=== PATIENT | male | born 1950 | race Caucasian/White ===

== ENCOUNTER 2016-08-21 09:33 | Day surgery (SDC) | payer MEDICARE ==
[2016-08-13 11:19] VITALS: BMI 25.0
[2016-08-21] MEDS ORDERED: Propofol 10 mg/ml Inj (20 ML) ONE (10:27)
[2016-08-21] MEDS ORDERED: Lidocaine 2% Inj (20ml) ONE (10:27)
[2016-08-21] MEDS ORDERED: Lactated Ringer's 1,000 ML IV SCH (11:30)
[2016-08-21 16:18] VITALS: BP 118/67; PULSE 66; RESP 16; TEMP 97.9; O2SAT 97
== END 2016-08-21 12:50 | disposition home or self-care (01) ==
LOC: ENDO 09:33
PROVIDERS: ATTEND Specialist
DX: Z12.11 Encounter for screening for malignant neoplasm of colon (principal); K57.30 Diverticulosis of large intestine without perforation or abscess without bleeding; K64.8 Other hemorrhoids; I10 Essential (primary) hypertension; E11.8 Type 2 diabetes mellitus with unspecified complications; E78.5 Hyperlipidemia, unspecified; Z79.84 Long term (current) use of oral hypoglycemic drugs
CPT/HCPCS: 45378; 82948; 87324; J2704; J7040; J7120